=== PATIENT | female | born 1985 | race Caucasian/White ===

== ENCOUNTER 2017-03-27 00:19 | Inpatient (IN) | payer SELFPAY ==
[2017-03-27] VITALS (10 sets, daily range): BP systolic 98–118; BP diastolic 63–83; PULSE 67–109; RESP 12–20; TEMP 97.7–98.4; O2SAT 94–100
[~2017-03-27] VITALS: Ht 160 cm; Wt 66.2 kg
[~2017-03-27 00:19] MED LIST: SULF-154 PO
[2017-03-27] MEDS ORDERED: KETOROLAC TROMETHAMINE 30 MG/ML (IVP) VIAL IVP ONE (01:45)
[2017-03-27] MEDS ORDERED: VANCOMYCIN INJ 1,000 MG in SODIUM CHLOR 0.9% 250 ML INJ 250 ML IV ONE (01:45)
[2017-03-27 02:19] LABS: AUTOMATED NEUTROPHIL # 10.1 TH/MM3 (1.8-7.7); BASOPHIL % 0.2 % (0.0-2.0); EOSINOPHIL # 0.1 TH/MM3 (0-0.4); HEMATOCRIT 40.4 % (35.0-46.0); LYMPH % 15.2 % (9.0-44.0); LYMPHOCYTE # 1.9 TH/MM3 (1.0-4.8); MEAN CELL VOLUME 86.3 FL (80.0-100.0); MEAN CORPUSCULAR HEMOGLOBIN 29.4 PG (27.0-34.0); MONO % 1.3 % (0.0-8.0); NEUT % 82.3 % (16.0-70.0); PLATELET COUNT 409 TH/MM3 (150-450); RED BLOOD COUNT 4.68 MIL/MM3 (4.00-5.30); RED CELL DISTRIBUTION WIDTH 14.4 % (11.6-17.2); WHITE BLOOD COUNT 12.3 TH/MM3 (4.0-11.0)
[2017-03-27 02:30] LABS: POTASSIUM 3.6 MEQ/L (3.5-5.1)
[2017-03-27 02:44] LABS: HEMO FLAGS AUTO DIFF
[2017-03-27 02:48] LABS: PLATELET ESTIMATE SMEAR HIGH (NORMAL); PLATELET MORPHOLOGY NORMAL (NORMAL); SCAN/DIFF AUTO DIFF CONFIRMED
[2017-03-27] MEDS ORDERED: IOHEXOL 350 MG/ML 10 ML VIAL (for RAD DIAG) IVCONTRAST ONE (03:22)
--- NOTE | 2017-03-27 03:37 | RADRPT ---
EXAM DATE/TIME: 03/27/2017 03:05 [place] COMPARISON: No previous studies available for comparison. INDICATIONS : Right hand swelling and pain. Evaluate for abscess. IV CONTRAST: 75 cc Omnipaque 350 (iohexol) IV RADIATION DOSE: 13.07 CTDIvol (mGy) MEDICAL HISTORY : None SURGICAL HISTORY : None. ENCOUNTER: Initial ACUITY: 1 day PAIN SCALE: 8/10 LOCATION: Right hand TECHNIQUE: Volumetric scanning of the hand was performed. Using automated exposure control and adjustment of th e mA and/or kV according to patient size, radiation dose was kept as low as reasonably achievable to obtain optimal diagnostic quality images. DICOM format image data is available electronically for re view and comparison. FINDINGS: Irregular rim-enhancing fluid collection seen in the dorsal thenar musculature compatible with an abs cess measuring 15 x 24 x 19 mm in size. Superficial margin of the mass comes as close to 6 mm beneath the skin, for example series 4 image 50. The deep margin of the mass is close to the mid shaft of th e second metacarpal. Don't see tendon sheath involvement. No perceptible bone destruction. Otherwise, and generalized subcutaneous edema without other organized fluid collections. CONCLUSION: Abscess within the dorsal thenar soft tissues as described above. The margin of the abscess is close to the mid shaft of the second metacarpal but no evidence by CT of osteomyelitis. Frank Mejia MD on March 27, 2017 at 3:32 Board Certified Radiologist. This report was verified electronically.
--- NOTE | 2017-03-27 03:48 | PD ---
HPI Chief Complaint: Laceration/Skin Injury Time Seen by Provider: 01:39 Travel History International Travel<30 days: No Contact w/Intl Traveler<30days: No Traveled to known affect area: No History of Present Illness HPI 31-year-old female presents to the emergency department for complaint of 4 days of worsening swelling of the right hand primarily affecting the first webspace. Patient denies any injury or puncture wound. Patient states she thought perhaps she had sustained an insect bite but does not recall any specific area of redness or puncture wound. 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 Patient rates pain as severe 8/10 in intensity. Patient has decreased range of motion of digit secondary to soft tissue swelling. Patient notes swelling of the dorsum of the hand and minimal swelling to her fingers. Patient's had no ascending erythema or axillary lymphadenopathy. Patient denies any fever or chills. Patient is not diabetic; told prediabetic. No IVDA. [facility] Past Medical History Narrative Medical Migraines Anemia prediabetes kidney stones lithotripsy occasional alcohol use tobacco use and marijuana use; nursing notes reviewed Anemia: Yes Cardiovascular Problems: No Diabetes: Yes (PT STATES PRE-DIABETIC. ) Patient Takes Glucophage: No Diminished Hearing: No Gastrointestinal Disorders: Yes GERD: Yes Genitourinary: Yes Headaches: Yes Implanted Vascular Access Dvce: No Kidney Stones: Yes Musculoskeletal: Yes Neurologic: Yes Respiratory: No Immunizations Current: Yes Migraines: Yes Influenza Vaccination: No ?: Not LMP: now Past Surgical History Genitourinary Surgery: Yes (LITHOTRIPSY 2015) Other Surgery: No Social History Alcohol Use: Yes (2-3 DAYS/WK) Tobacco Use: Yes (1/2 PPD) Substance Use: Yes (Marijuana) Allergies-Medications (Allergen,Severity, Reaction): Coded Allergies: penicillin G (Verified Allergy, Intermediate, 03/27/17) Reported Meds & Prescriptions Reported Meds & Active Scripts Active Review of Systems Except as stated in HPI: all other systems reviewed are Neg General / Constitutional: No: Fever, Chills HENT: No: Congestion Cardiovascular: No: Chest Pain or Discomfort Respiratory: No: Shortness of Breath Gastrointestinal: No: Abdominal Pain Genitourinary: No: Dysuria Musculoskeletal: Positive: Edema (right hand), Pain Skin: Positive Lumps ( right hand) Neurologic: No: Weakness ( right hand) Psychiatric: No: Anxiety Hematologic/Lymphatic: No: Lymph Node Enlargement Physical Exam Narrative GENERAL: Well-developed well-nourished female in obvious discomfort no respiratory distress. SKIN: Warm and dry. HEAD: Normocephalic. EYES: No scleral icterus. No injection or drainage. NECK: Supple, trachea midline. No JVD or lymphadenopathy. CARDIOVASCULAR: Regular rate and rhythm without murmurs, gallops, or rubs. RESPIRATORY: Breath sounds equal bilaterally. No accessory muscle use. GASTROINTESTINAL: Abdomen soft, non-tender, nondistended. MUSCULOSKELETAL: No cyanosis, or edema. Attention right hand with marked soft tissue swelling of the dorsum of the right hand each digit shows limited range of motion secondary to soft tissue swelling to the dorsum of the right hand without increased pain on passive extension of the digits. Patient does hold hands and actual flexion cascade and has decreased thumb apposition secondary to soft tissue swelling. Capillary refill is brisk and less than 2 seconds per digit. Sensory exam is intact. No obvious wound identified on the dorsum of the hand or palmar surface. Patient has scars to the dorsum of the right hand. Radial pulses 2+ to palpation no ascending erythema and no axillary lymphadenopathy. BACK: Nontender without obvious deformity. No CVA tenderness. Data Data Last Documented VS Vital Signs Date Time Temp Pulse Resp B/P (MAP) Pulse Ox O2 Delivery O2 Flow Rate FiO2 03/27/17 04:17 14 03/27/17 02:56 84 108/72 (84) 97 Room Air 03/27/17 00:24 98.4 Orders Orders Basic Metabolic Panel (Bmp) (03/27/17 01:39) Complete Blood Count With Diff (03/27/17 01:39) Blood Culture (03/27/17 01:39) Iv Access Insert/Monitor (03/27/17 01:39) Ketorolac Inj (Toradol Inj) (03/27/17 01:45) Ct Hand W Iv Contrast (03/27/17 ) Ed Urine Pregnancytest Poc (03/27/17 01:39) Vancomycin Inj (Vancomycin Inj) (03/27/17 01:45) Iohexol 350 Inj (Omnipaque 350 Inj) (03/27/17 03:22) Lidocaine Pf 1% Inj (Xylocaine-Mpf 1% In (03/27/17 04:00) Wound Culture And Gram Stain (03/27/17 03:48) Morphine Inj (Morphine Inj) (03/27/17 04:15) Ondansetron Inj (Zofran Inj) (03/27/17 04:15) ^ Saline Lock (03/27/17 05:01) Resp Oxygen Pa C Titrat 1-4 L (03/27/17 ) Notify Dr: Other (03/27/17 05:01) Sodium Chloride 0.9% Flush (Ns Flush) (03/27/17 09:00) Sodium Chloride 0.9% Flush (Ns Flush) (03/27/17 05:15) Labs Laboratory Tests Test 03/27/17 02:06 White Blood Count 12.3 TH/MM3 Red Blood Count 4.68 MIL/MM3 Hemoglobin 13.8 GM/DL Hematocrit 40.4 % Mean Corpuscular Volume 86.3 FL Mean Corpuscular Hemoglobin 29.4 PG Mean Corpuscular Hemoglobin Concent 34.0 % Red Cell Distribution Width 14.4 % Platelet Count 409 TH/MM3 Mean Platelet Volume 7.1 FL Neutrophils (%) (Auto) 82.3 % Lymphocytes (%) (Auto) 15.2 % Monocytes (%) (Auto) 1.3 % Eosinophils (%) (Auto) 1.0 % Basophils (%) (Auto) 0.2 % Neutrophils # (Auto) 10.1 TH/MM3 Lymphocytes # (Auto) 1.9 TH/MM3 Monocytes # (Auto) 0.2 TH/MM3 Eosinophils # (Auto) 0.1 TH/MM3 Basophils # (Auto) 0.0 TH/MM3 CBC Comment AUTO DIFF Differential Comment AUTO DIFF CONFIRMED Platelet Estimate HIGH Platelet Morphology Comment NORMAL Red Cell Morphology Comment NORMAL Blood Urea Nitrogen 9 MG/DL Creatinine 0.66 MG/DL Random Glucose 98 MG/DL Calcium Level 8.7 MG/DL Sodium Level 136 MEQ/L Potassium Level 3.6 MEQ/L Chloride Level 103 MEQ/L Carbon Dioxide Level 25.0 MEQ/L Anion Gap 8 MEQ/L Estimat Glomerular Filtration Rate 104 ML/MIN [facility] Medical Decision Making Medical Screen Exam Complete: Yes Emergency Medical Condition: Yes Medical Record Reviewed: Yes Interpretation(s) CT hand: FINDINGS: Irregular rim-enhancing fluid collection seen in the dorsal thenar musculature compatible with an abscess measuring 15 x 24 x 19 mm in size. Superficial margin of the mass comes as close to 6 mm beneath the skin, for example series 4 image 50. The deep margin of the mass is close to the mid shaft of the second metacarpal. Don't see tendon sheath involvement. No perceptible bone destruction. Otherwise, and generalized subcutaneous edema without other organized fluid collections. CONCLUSION: Abscess within the dorsal thenar soft tissues as described above. The margin of the abscess is close to the mid shaft of the second metacarpal but no evidence by CT of osteomyelitis. Frank Mejia MD on March 27, 2017 at 3:32 Board Certified Radiologist. This report was verified electronically. Differential Diagnosis Cellulitis, abscess, infectious tenosynovitis, fracture, osteomyelitis Narrative Course IV access obtained specimens collected and sent for resulting; patient administered Toradol for pain imaging studies ordered and administered IV antibiotics Patient refused plain x-ray and states she does not have a fracture and does not have any retained foreign body CT with IV contrast shows evidence of a soft tissue abscess CBC with automated differential with mild leukocytosis and left shift chemistries are normal range Discussed incision and drainage procedure with patient and after verbal consent for seated with attempted to I&D the first webspace abscess. Patient's case discussed with on-call medicine for admission for ongoing IV antibiotics is aware that able to aspirate purulent material from CT he identified abscess but on review of abscess site unable to aspirate any further fluid therefore concern for small size of abscess and unable to I&D. Plan will be to admit to medicine service for ongoing IV antibiotic therapy and consult to hand service. Patient is aware that she may require surgical management and irrigation of the abscess site by hand surgeon. Procedures Procedure Narrative After informed verbal consent the dorsum of the right hand was sterilely prepped and draped and cleansed with Betadine; 2 cc of 1% lidocaine plain was injected for local anesthesia with good effect; using ultrasound to locate abscess fluid collection a #25-gauge needle was inserted to see if fluid could be withdrawn and 1 cc of purulent material was aspirated and sent for C & S; prior to attempting incision and drainage the site was again evaluated by inserting a 25-gauge needle into what appeared to be a residual fluid collection and no fluid was able to be successfully aspirated. In view of volume of initial aspirate and collapse of volume of abscess site by ultrasound incision and drainage with scalpel was deferred. Patient was reassessed and remained with intact sensation brisk capillary refill less than 2 seconds per digit; continues to have pain to palpation. Physician Communication Physician Communication discussed with Dr Anderson for admission Diagnosis Primary Impression: Abscess of hand, right Admitting Information Admitting Physician Requests: Admit Eliaz Wilks MD Mar 27, 2017 03:48
[2017-03-27] MEDS ORDERED: LIDOCAINE HCL 1% PF 30 ML VIAL INFIL ONE (04:00)
[2017-03-27] MEDS ORDERED: ONDANSETRON HCL 4 MG/2 ML VIAL IV PUSH ONE (04:15)
[2017-03-27] MEDS ORDERED: MORPHINE SULFATE 4 MG/ML INJ IV PUSH ONE (04:15)
[2017-03-27] MEDS ORDERED: SODIUM CHLORIDE 0.9% FLUSH 10 ML FLUSH IVF PRN (05:15)
[2017-03-27] MEDS ORDERED: metroNIDAZOLE 500 MG INJ 100 ML IV ONE (05:15)
[2017-03-27] MEDS ORDERED: AZTREONAM INJ 2,000 MG in SODIUM CHLORIDE 0.9% INJ 100 ML IV ONE (05:15)
[2017-03-27] MEDS ORDERED: Vancomycin Consult Pharmacy 1 EA OTHER SCH (05:45)
[2017-03-27] MEDS ORDERED: SODIUM CHLORIDE 0.9% FLUSH 10 ML FLUSH IV FLUSH PRN (05:45)
[2017-03-27] MEDS ORDERED: NALOXONE HCL 0.4 MG/ML AMP IV PUSH PRN (05:45)
[2017-03-27] MEDS: LEVOFLOXACIN 750 MG PREMIX INJ 150 ML IV SCH (07:54)
[2017-03-27] MEDS: SODIUM CHLOR 0.9% 1000 ML INJ 1,000 ML IV SCH ×2 (07:55→21:35)
[2017-03-27] MEDS ORDERED: SODIUM CHLORIDE 0.9% FLUSH 10 ML FLUSH IV FLUSH SCH (09:00)
[2017-03-27] MEDS: SODIUM CHLORIDE 0.9% FLUSH 10 ML FLUSH IV FLUSH SCH ×2 (09:00→21:35)
[2017-03-27] MEDS ORDERED: oxyCODONE/ACETAMINOPHEN 5 MG/325 MG TAB PO PRN (09:00)
--- NOTE | 2017-03-27 09:00 | HHI.HP ---
[facility] No Primary Care Physician Admission Diagnosis R hand abscess/cellulitis Diagnoses: Travel History International Travel<30 Days: No Contact w/Intl Traveler <30 Da: No Traveled to Known Affected Are: No History of Present Illness Mrs. Leon is a 31-year-old female. Into the ER yesterday with swelling and redness of her right hand. Imaging revealed an abscess. I&D was performed. Further I&D may be needed. She says the symptoms started about 5 days prior to her coming in and in that time there has been progression of redness, swelling, and pain. The site of origin was by the fold of her thumb. She denies any fever or chills or night sweats. Primary complaint is pain. No nausea vomiting or diarrhea. Review of Systems Constitutional: DENIES: Diaphoretic episodes, Fatigue, Fever, Chills, Night Sweats Eyes: DENIES: Blurred vision, Diplopia, Eye inflammation Ears, nose, mouth, throat: DENIES: Tinnitus, Hearing loss, Vertigo Respiratory: DENIES: Apneas, Cough, Snoring Cardiovascular: DENIES: Chest pain, Palpitations, Syncope Gastrointestinal: DENIES: Abdominal pain, Black stools, Bloody stools Musculoskeletal: COMPLAINS OF: Joint pain, Joint Swelling, DENIES: Muscle aches , Stiffness Integumentary: COMPLAINS OF: Abnormal pigmentation, DENIES: Pruritus, Rash Hematologic/lymphatic: DENIES: Bruising, Lymphadenopathy Immunologic/allergic: DENIES: Eczema, Urticaria Neurologic: DENIES: Abnormal gait, Headache, Paresthesias Psychiatric: DENIES: Anxiety, Confusion Past Family Social History Past Medical History Iron deficiency anemia Pre-diabetes Nephrolithiasis 2015 Past Surgical History None Reported Medications Reported Meds & Active Scripts Active Allergies: Coded Allergies: penicillin G (Verified Allergy, Intermediate, 03/27/17) Active Ordered Medications Administered Medications Medications (Trade) Dose Ordered Sig/[place] Route PRN Reason Start Time Stop Time Status Last Admin Dose Admin Sodium Chloride 1,000 ml @ 100 mls/hr Q10H IV 03/27/17 05:40 03/27/17 07:55 Levofloxacin/ Dextrose 150 ml @ 100 mls/hr Q24H IV 03/27/17 07:00 03/27/17 07:54 Vancomycin HCl 1250 mg/Sodium Chloride 262.5 ml @ 250 mls/hr Q12H IV 03/27/17 11:00 03/27/17 11:40 Oxycodone/ Acetaminophen (Percocet 10-325 Mg) 1 tab Q4H PRN PO Pain 7 to 10 03/27/17 09:00 03/27/17 09:02 Family History Mother: kidney stones Social History Occasional alcohol use Less than 1 pack per day of cigarettes Occasional marijuana use Past history of IV drug abuse Past history of cocaine, methamphetamines Physical Exam Vital Signs Vital Signs Date Time Temp Pulse Resp B/P (MAP) Pulse Ox O2 Delivery O2 Flow Rate FiO2 03/27/17 06:07 81 16 103/63 (76) 99 03/27/17 05:16 74 16 112/68 (83) 98 Room Air 03/27/17 05:16 98 21 03/27/17 04:17 14 03/27/17 03:35 16 03/27/17 02:56 84 16 108/72 (84) 97 Room Air 03/27/17 02:21 14 03/27/17 02:18 109 14 98/67 (77) 95 03/27/17 00:24 98.4 109 12 98/67 (77) 95 Physical Exam GENERAL: NAD, A&Ox3 HEAD: Normocephalic. NECK: Supple, trachea midline. No lymphadenopathy. EYES: No scleral icterus. No injection or drainage. CARDIOVASCULAR: Regular rate and rhythm without murmurs, gallops, or rubs. RESPIRATORY: Breath sounds equal bilaterally. No accessory muscle use. GASTROINTESTINAL: Abdomen soft, non-tender, nondistended. MUSCULOSKELETAL: No cyanosis, or edema. Swelling of right hand most prominent at the thumb fold, status post I&D. SKIN: Warm and dry. NEURO: No focal neurological deficitis. Laboratory Laboratory Tests Test 03/27/17 02:06 White Blood Count 12.3 Red Blood Count 4.68 Hemoglobin 13.8 Hematocrit 40.4 Mean Corpuscular Volume 86.3 Mean Corpuscular Hemoglobin 29.4 Mean Corpuscular Hemoglobin Concent 34.0 Red Cell Distribution Width 14.4 Platelet Count 409 Mean Platelet Volume 7.1 Neutrophils (%) (Auto) 82.3 Lymphocytes (%) (Auto) 15.2 Monocytes (%) (Auto) 1.3 Eosinophils (%) (Auto) 1.0 Basophils (%) (Auto) 0.2 Neutrophils # (Auto) 10.1 Lymphocytes # (Auto) 1.9 Monocytes # (Auto) 0.2 Eosinophils # (Auto) 0.1 Basophils # (Auto) 0.0 CBC Comment AUTO DIFF Differential Comment AUTO DIFF CONFIRMED Platelet Estimate HIGH Platelet Morphology Comment NORMAL Red Cell Morphology Comment NORMAL Blood Urea Nitrogen 9 Creatinine 0.66 Random Glucose 98 Calcium Level 8.7 Sodium Level 136 Potassium Level 3.6 Chloride Level 103 Carbon Dioxide Level 25.0 Anion Gap 8 Estimat Glomerular Filtration Rate 104 Date/Time Source Procedure Growth Status 03/27/17 02:09 Blood Peripheral Aerobic Blood Culture Pending Received 03/27/17 02:09 Blood Peripheral Anaerobic Blood Culture Pending Received 03/27/17 04:28 Wound Hand Gram Stain Pending Received 03/27/17 04:28 Wound Hand Wound Culture Pending Received Result Diagram: 03/27/17 0206 03/27/17 0206 Caprini VTE Risk Assessment Caprini VTE Risk Assessment: No/Low Risk (score <= 1) Caprini Risk Assessment Model Point Value = 1 Point Value = 2 Point Value = 3 Point Value = 5 Age 41-60 Minor surgery BMI > 25 kg/m2 Swollen legs Varicose veins or History of unexplained or recurrent spontaneous Oral contraceptives or hormone replacement Sepsis (< 1 month) Serious lung disease, including pneumonia (< 1 month) Abnormal pulmonary function Acute myocardial infarction Congestive heart failure (< 1 month) History of inflammatory bowel disease Medical patient at bed rest Age 61-74 Arthroscopic surgery Major open surgery (> 45 min) Laparoscopic surgery (> 45 min) Malignancy Confined to bed (> 72 hours) Immobilizing plaster cast Central venous access Age >= 75 History of VTE Family history of VTE Factor V Leiden Prothrombin [id number] Lupus anticoagulant Anticardiolipin antibodies Elevated serum homocysteine Heparin-induced thrombocytopenia Other congenital or acquired thrombophilia Stroke (< 1 month) Elective arthroplasty Hip, pelvis, or leg fracture Acute spinal cord injury (< 1 month) Prophylaxis Regimen Total Risk Factor Score Risk Level Prophylaxis Regimen 0-1 Low Early ambulation 2 Moderate Order ONE of the following: *Sequential Compression Device (SCD) *Heparin 5000 units SQ BID 3-4 Higher Order ONE of the following medications: *Heparin 5000 units SQ TID *Enoxaparin/Lovenox 40 mg SQ daily (WT < 150 kg, CrCl > 30 mL/min) *Enoxaparin/Lovenox 30 mg SQ daily (WT < 150 kg, CrCl > 10-29 mL/min) *Enoxaparin/Lovenox 30 mg SQ BID (WT < 150 kg, CrCl > 30 mL/min) AND/OR *Sequential Compression Device (SCD) 5 or more Highest Order ONE of the following medications: *Heparin 5000 units SQ TID (Preferred with Epidurals) *Enoxaparin/Lovenox 40 mg SQ daily (WT < 150 kg, CrCl > 30 mL/min) *Enoxaparin/Lovenox 30 mg SQ daily (WT < 150 kg, CrCl > 10-29 mL/min) *Enoxaparin/Lovenox 30 mg SQ BID (WT < 150 kg, CrCl > 30 mL/min) AND *Sequential Compression Device (SCD) Assessment and Plan Problem List: (1) Abscess of hand, right ICD Code: L02.511 - Cutaneous abscess of right hand Status: Acute Assessment and Plan Assessment and plan 31-year-old female admitted secondary to right hand abscess Right hand abscess Right hand cellulitis I&D performed in the ER Further abscess suspected Hand surgeon has been consulted Continue Levaquin Continue probiotics Continue vancomycin Follow wound cultures Continue pain treatments Nicotine use Patient counseled to quit Patient declines NicoDerm DVT prophylaxis Patient is ambulatory SCDs Physician Certification 2 Midnight Certification Type: Admission for Inpatient Services Order for Inpatient Services The services are ordered in accordance with Medicare regulations or non- Medicare payer requirements, as applicable. In the case of services not specified as inpatient-only, they are appropriately provided as inpatient services in accordance with the 2-midnight benchmark. Estimated LOS (days): 3 days is the estimated time the patient will need to remain in the hospital, assuming treatment plan goals are met and no additional complications. Post-Hospital Plan: Manish Blackwood MD Mar 27, 2017 09:00
[2017-03-27] MEDS: oxyCODONE/ACETAMINOPHEN 10 MG/325 MG TAB PO PRN (09:02)
[2017-03-27] MEDS: VANCOMYCIN INJ 1,250 MG in SODIUM CHLOR 0.9% 250 ML INJ 250 ML IV SCH ×2 (11:40→21:34)
[2017-03-27] MEDS: HYDROmorphone HCL PF 1 MG/ML VIAL IV PUSH PRN ×3 (12:48→21:34)
--- NOTE | 2017-03-27 17:45 | MB ---
cc: BRAIN KNIGHT M.D., BRENDA H. M.D. DATE OF CONSULTATION: 03/27/2017 REFERRING PHYSICIAN: Eliza Wilks MD. HISTORY OF PRESENT ILLNESS The patient is a 31-year-old female who presented to the emergency room here today with redness and swelling of right hand. A CT scan was performed which revealed an abscess. The abscess was partially drained with a needle. This material was cultured and gram stain the gram stain shows rare WBCs and have a mixed osiris with no predominant morphology lesion. The patient was admitted placed on intravenous antibiotics and consultation is requested noted to adequately treat the patient's abscess. PAST MEDICAL HISTORY: A Review of systems was positive for joint pain and joint swelling and abnormal pigmentation. FAMILY HISTORY Positive for iron deficiency anemia Pre diabetes Nephrolithiasis 2014. PAST SURGICAL HISTORY Denied. MEDICATIONS: Medications listed on the chart. ALLERGIES PENICILLIN FAMILY HISTORY: Positive, kidney stones. SOCIAL HISTORY The patient consumes alcohol occasionally, less then one pack cigarettes per day. Past history of IV drug abuse, occasional marijuana use. PHYSICAL EXAMINATION: IN GENERAL: On examination the patient is sitting comfortably in bed. VITAL SIGNS: Temperature 98.4, pulse 75, respirations 16, blood pressure 118/82 and pulse oximetry of 94. HEAD, EYES, EARS, NOSE, AND THROAT: Her extraocular muscles are intact. Time-out is clear. NECK: Neck is supple without masses. LUNGS: Clear. HEART: Heart is regular rate rhythm. EXTREMITIES: Examination of the upper extremities reveals swelling of the right hand on the dorsal surface. There is a puncture wound which is visible. There is tenderness. There is fluctuance. LABORATORY DATA White counts 12.3 on admission, 82.3% neutrophils. RADIOLOGIC: The CT scan was apparently positive for abscess. IMPRESSION The patient has an abscess which has been untreated. PLAN The patient will be taken to the operating room for incision and drainage of the abscess. The patient is made aware that there will be an incision approximately 2 cm there will be packing placed in addition, the packing can be removed in 24 hours after the surgery. Wound care will be ordered for the patient if she decides to leave within hours after the surgery. She understands, accepts risks and complications of surgery. The patient is scheduled for the operating room tomorrow 11:30 a.m. MD VANCE Iraheta/otilia /5:08 PM /5:36 PM
[2017-03-28] VITALS (7 sets, daily range): BP systolic 111–116; BP diastolic 73–81; PULSE 73–89; RESP 16–20; TEMP 97.5–98.1; O2SAT 98–100
[2017-03-28] MEDS: SODIUM CHLOR 0.9% 1000 ML INJ 1,000 ML IV SCH ×2 (01:38→13:14)
[2017-03-28] MEDS: HYDROmorphone HCL PF 1 MG/ML VIAL IV PUSH PRN ×4 (01:46→21:50)
[2017-03-28] MEDS: LEVOFLOXACIN 750 MG PREMIX INJ 150 ML IV SCH (05:49)
[2017-03-28] MEDS ORDERED: Vancomycin Consult Pharmacy 1 EA OTHER SCH (08:45)
[2017-03-28] MEDS: oxyCODONE/ACETAMINOPHEN 10 MG/325 MG TAB PO PRN ×3 (08:49→20:12)
[2017-03-28] MEDS: SODIUM CHLORIDE 0.9% FLUSH 10 ML FLUSH IV FLUSH SCH ×2 (08:50→20:19)
[2017-03-28] MEDS ORDERED: CHLORHEXIDINE GLUCONATE 2 % 1 PACK (2 CLOTHS) TOPICAL PRN (10:00)
[2017-03-28] MEDS ORDERED: INSULIN HUMAN REGULAR 1,000 UNITS/10 ML VIAL SQ PRN (10:00)
[2017-03-28] MEDS ORDERED: LACTATED RINGER'S 1000 ML IV PRN (10:00)
[2017-03-28] MEDS ORDERED: POVIDONE IODINE 5% (ANTISEPSIS KIT) 4 APPLICATIONS EACH NARE PRN (10:00)
[2017-03-28] MEDS ORDERED: SODIUM CHLORID 0.9% 500 ML IV PRN (10:00)
[2017-03-28] MEDS ORDERED: METOPROLOL TARTRATE 25 MG TAB PO PRN (10:00)
[2017-03-28] MEDS ORDERED: MIDAZOLAM HCL 2 MG/2 ML VIAL ONE (10:06)
[2017-03-28] MEDS ORDERED: FAMOTIDINE 20 MG/2 ML VIAL ONE (10:07)
[2017-03-28] MEDS ORDERED: BUPIVACAINE HCL PF 0.5% 30 ML VIAL ONE (10:18)
[2017-03-28] MEDS ORDERED: PHARMACY ORDERED LAB ONE (10:45)
[2017-03-28 10:48] LABS: BASOPHIL # 0.1 TH/MM3 (0-0.2); BASOPHIL % 1.3 % (0.0-2.0); EOSINOPHIL # 0.1 TH/MM3 (0-0.4); EOSINOPHIL % 0.9 % (0.0-4.0); HEMATOCRIT 37.7 % (35.0-46.0); HEMO FLAGS DIFF FINAL; LYMPH % 13.1 % (9.0-44.0); MEAN CELL VOLUME 89.1 FL (80.0-100.0); MEAN CORPUSCULAR HEMOGLOBIN 28.9 PG (27.0-34.0); MEAN CORPUSCULAR HGB CONC 32.5 % (32.0-36.0); MONO % 5.8 % (0.0-8.0); NEUT % 78.9 % (16.0-70.0); PLATELET COUNT 322 TH/MM3 (150-450); RED BLOOD COUNT 4.23 MIL/MM3 (4.00-5.30); RED CELL DISTRIBUTION WIDTH 14.4 % (11.6-17.2); WHITE BLOOD COUNT 7.6 TH/MM3 (4.0-11.0)
[2017-03-28 10:55] LABS: CHLORIDE 102 MEQ/L (98-107); POTASSIUM 4.1 MEQ/L (3.5-5.1); SODIUM (NA) 137 MEQ/L (136-145)
[2017-03-28] MEDS ORDERED: KETAMINE HCL 500 MG/10 ML VIAL ONE (10:56)
[2017-03-28 10:59] LABS: ANION GAP 8 MEQ/L (5-15); BICARBONATE 27.5 MEQ/L (21.0-32.0); BLOOD UREA NITROGEN 7 MG/DL (7-18)
[2017-03-28 11:02] LABS: ALT (GPT) 15 U/L (10-53); AST (GOT) 11 U/L (15-37); GLOMERULAR FILTRATION RATE 116 ML/MIN (>89)
[2017-03-28 11:03] LABS: TOTAL BILIRUBIN ADULT 0.7 MG/DL (0.2-1.0)
[2017-03-28 11:05] LABS: ALKALINE PHOSPHATASE 84 U/L (45-117)
[2017-03-28] MEDS ORDERED: ONDANSETRON HCL 4 MG/2 ML VIAL IV PUSH ONE (12:00)
[2017-03-28] MEDS ORDERED: PROPOFOL 200 MG/20 ML AMP IV ONE (12:00)
[2017-03-28] MEDS ORDERED: PHENYLEPH/NS 1000 MCG/10 ML SYR IV ONE (12:00)
[2017-03-28] MEDS: VANCOMYCIN INJ 1,250 MG in SODIUM CHLOR 0.9% 250 ML INJ 250 ML IV SCH (12:00)
[2017-03-28] MEDS ORDERED: LACTATED RINGER'S 1000 ML INJ 1,000 ML IV ONE (12:00)
--- NOTE | 2017-03-28 12:02 | HHI.PR ---
Immediate Post Op Note Procedure Date: Mar 28, 2017 Pre Op Diagnosis: (1) Abscess of hand, right Post Op Diagnosis: (1) Abscess of hand, right Surgeon: Lyla Hall [employer] Professional(s): None Procedure: Incision and drainage of abscess of the right hand. Anesthesia: General Drains: Other (1/4 inch iodoform packing) Tourniquet time (min at mmHg) NA Patient to: PACU Patient Condition: Good Date/Time of Procedure: SEE SURGICAL CARE RECORD Lyla Hall MD Mar 28, 2017 12:02
--- NOTE | 2017-03-28 12:32 | MP ---
cc: BRAIN KNIGHT M.D. DATE OF SURGERY 03/28/2017 PREOPERATIVE DIAGNOSIS Abscess right hand. POSTOPERATIVE DIAGNOSIS Abscess right hand. PROCEDURE Incision and drainage of abscess right hand. ANESTHESIA General SURGEON Brain Knight MD INDICATIONS This is a 31-year-old female with abscess of the right hand. FINDINGS There is a deep abscess. There was approximately 3-4 mL of pus in the abscess. At completion of the procedure, the abscess had been completely drained, loculations broke up and the wound packed with iodoform packing. OPERATIVE TIME Approximately 30 minutes PROCEDURE IN DETAIL The patient was seen preoperatively where the site and side were identified and marked. The patient was then taken to the operating room, placed in supine position. Her identity was checked against the arm band and the consent form site and side confirmed, time-out called prior to beginning the procedure. The right upper extremity was prepped with Hibiclens and draped in the usual sterile fashion. The area be incised was outlined with a marking pen on the dorsal aspect of the hand. It measured approximate 1.5 to 2 cm in length directly over the abscess. Bupivacaine 0.5% plain was used make a dorsal block of the dorsal radial and ulnar nerves in the distal forearm. A #15 blade was used make the incision down through skin down to the subcutaneous tissue. A clamp was used to penetrate the abscess cavity which was entered, a large amount of pus did exude from this area, approximately 3-4 mL. The wound was held open using a clamp and a suction cannula was used to bring up the loculations, remove the pus, as well as to explore it. The cavity was then copiously irrigated with saline until the effluent fluid was clear. It was then packed with iodoform packing. Povidone-iodine ointment was applied after cleansing the hand of Hibiclens and blood. On top of this was placed Adaptic, Telfa, 4x4s and hand wrap. The patient was then taken from the operating room to recovery room in satisfactory condition having tolerated the procedure well. Postoperative instructions include keeping arm elevated, keeping the area clean and dry. The patient will be started back on a regular diet. She will be cleared for discharge when medically cleared to be followed up in my clinic next week. Wound care instructions were written. This include removing the packing in the morning and begin soaking in a dilute solution of Betadine and water and apply povidone-iodine ointment. MD VANCE Iraheta/ANAI /12:03 PM /12:16 PM [facility]Kim
--- NOTE | 2017-03-28 15:43 | HHI.PR ---
Subjective Remarks Patient seen and evaluated for right hand infection. Status post I&D. Doing well. Gram-negative bacteria growing in cultures Patient complaining of moderate pain in the right hand postoperatively although improved from her admission complaint Objective Vitals Vital Signs Date Time Temp Pulse Resp B/P (MAP) Pulse Ox O2 Delivery O2 Flow Rate FiO2 03/28/17 12:30 97.9 61 16 110/75 (87) 100 Room Air 03/28/17 12:15 97.9 64 16 123/79 (94) 100 Nasal Cannula 2 03/28/17 12:00 97.9 62 16 121/72 (88) 100 Nasal Cannula 2 03/28/17 11:55 97.9 62 16 111/77 (88) 99 Nasal Cannula 2 03/28/17 11:55 87 03/28/17 09:40 98.2 75 18 115/76 (89) 95 03/28/17 08:00 97.5 74 16 111/73 (86) 100 03/28/17 04:00 20 03/28/17 00:00 97.8 89 20 112/76 (88) 100 03/27/17 21:10 99 21 03/27/17 20:00 98.0 72 20 109/83 (92) 100 03/27/17 17:52 18 03/27/17 16:00 98.4 75 16 118/82 (94) 94 I/O 03/27/17 03/27/17 03/27/17 03/28/17 03/28/17 03/28/17 07:00 15:00 23:00 07:00 15:00 23:00 Intake Total 350 ml 512.5 ml 1320 ml 1272.5 ml 2150 ml Output Total 300 ml 250 ml 20 ml Balance 350 ml 512.5 ml 1020 ml 1022.5 ml 2130 ml Intake Oral 520 ml 300 ml IV Total 350 ml 512.5 ml 800 ml 972.5 ml 1350 ml Other 800 ml Output Urine Total 300 ml 250 ml Estimated Blood Loss 20 ml # Voids 2 1 # Bowel Movements 0 0 Result Diagram: 03/28/17 1040 03/28/17 1040 Objective Remarks GENERAL: This is a well-nourished, well-developed patient, in no apparent distress. CARDIOVASCULAR: Regular rate and rhythm without murmurs, gallops, or rubs. RESPIRATORY: Clear to auscultation. Breath sounds equal bilaterally. No wheezes , rales, or rhonchi. GASTROINTESTINAL: Abdomen soft, non-tender, nondistended. Normal active bowel sounds MUSCULOSKELETAL: Right hand dressed post I&D, other 3 Extremities without clubbing, cyanosis, or edema. NEURO: Alert & Oriented x4 to person, place, time, situation. Moves all ext x4 A/P Problem List: (1) Abscess of hand, right ICD Code: L02.511 - Cutaneous abscess of right hand Status: Acute Plan: Follow cultures, as resulted we'll de-escalate antibiotic therapy DC IV fluids Taper IV pain meds Discharge Planning Likely discharge in a.m. pending cultures Anitra Kendrick MD Mar 28, 2017 15:43
[2017-03-28] MEDS: POVIDONE IODINE 10% SOLN 118 ML BOTTLE TOPICAL SCH (20:12)
[2017-03-28] MEDS: POVIDONE IODINE 10% OINT 30 GM TUBE TOPICAL SCH (20:13)
[2017-03-29] VITALS: BP 110/83; PULSE 65; RESP 20; TEMP 96.9; O2SAT 98
[2017-03-29] MEDS: VANCOMYCIN 1,500 MG/NS 500 ML IV SCH ×4 (00:01→12:45)
[2017-03-29] MEDS: oxyCODONE/ACETAMINOPHEN 10 MG/325 MG TAB PO PRN ×4 (00:01→12:28)
[2017-03-29 04:25] VITALS: RESP 20
[2017-03-29] MEDS: LEVOFLOXACIN 750 MG PREMIX INJ 150 ML IV SCH (05:55)
[2017-03-29 08:19] VITALS: BP 112/79; PULSE 63; RESP 16; TEMP 97.2; O2SAT 99
[2017-03-29] MEDS: SODIUM CHLORIDE 0.9% FLUSH 10 ML FLUSH IV FLUSH SCH (08:26)
[2017-03-29 12:42] VITALS: BP 110/67; PULSE 81; RESP 15; TEMP 97.2; O2SAT 95
[2017-03-29] MEDS: POVIDONE IODINE 10% SOLN 118 ML BOTTLE TOPICAL SCH (12:45)
[2017-03-29] MEDS: POVIDONE IODINE 10% OINT 30 GM TUBE TOPICAL SCH (12:45)
[2017-03-29 13:28] VITALS: RESP 18
[2017-03-29] MEDS ORDERED: LEVO750T3 PO (13:31)
[2017-03-29] MEDS ORDERED: OXYC1TAB36 PO (13:31)
--- NOTE | 2017-03-29 13:32 | HHI.DCPOC ---
Discharge Care Plan Diagnosis: (1) Abscess of hand, right Goals to Promote Your Health * To prevent worsening of your condition and complications * To maintain your health at the optimal level Directions to Meet Your Goals Take your medications as prescribed Follow your dietary instruction Follow activity as directed Keep your appointments as scheduled Take your immunizations and boosters as scheduled If your symptoms worsen call your PCP, if no PCP go to Urgent Care Center or Emergency Room Smoking is Dangerous to Your Health. Avoid second hand smoke Call the 24-hour hour crisis hotline for domestic abuse at Anitra Kendrick MD Mar 29, 2017 13:32
--- NOTE | 2017-03-29 13:35 | HHI.DS ---
Discharge Summary Admission Date Mar 27, 2017 at 05:05 Discharge Date: Mar 29, 2017 Admitting Diagnosis R hand abscess/cellulitis (1) Abscess of hand, right ICD Code: L02.511 - Cutaneous abscess of right hand Status: Acute Procedures I&D right hand Brief History - From Admission Mrs. Leon is a 31-year-old female. Into the ER yesterday with swelling and redness of her right hand. Imaging revealed an abscess. I&D was performed. Further I&D may be needed. She says the symptoms started about 5 days prior to her coming in and in that time there has been progression of redness, swelling, and pain. The site of origin was by the fold of her thumb. She denies any fever or chills or night sweats. Primary complaint is pain. No nausea vomiting or diarrhea. CBC/BMP: 03/28/17 1040 03/28/17 1040 Significant Findings Laboratory Tests Test 03/27/17 02:06 03/28/17 10:40 White Blood Count 12.3 TH/MM3 (4.0-11.0) Neutrophils (%) (Auto) 82.3 % (16.0-70.0) 78.9 % (16.0-70.0) Neutrophils # (Auto) 10.1 TH/MM3 (1.8-7.7) Platelet Estimate HIGH (NORMAL) Albumin 2.9 GM/DL (3.4-5.0) Aspartate Amino Transf (AST/SGOT) 11 U/L (15-37) PE at Discharge GENERAL: This is a well-nourished, well-developed patient, in no apparent distress. CARDIOVASCULAR: Regular rate and rhythm without murmurs, gallops, or rubs. RESPIRATORY: Clear to auscultation. Breath sounds equal bilaterally. No wheezes , rales, or rhonchi. GASTROINTESTINAL: Abdomen soft, non-tender, nondistended. Normal active bowel sounds MUSCULOSKELETAL: Right hand dressed post I&D, other 3 Extremities without clubbing, cyanosis, or edema. NEURO: Alert & Oriented x4 to person, place, time, situation. Moves all ext x4 Pt update on day of discharge Patient is doing well, dressing change done with nursing team. Patient taught how to dress her wounds. Discharge plans discussed with patient and nursing team Hospital Course Patient is a 31-year-old female with minimal past history did have injury to the right hand and developed abscess which was I&D. Cultures were positive for Klebsiella pneumonia and patient was continued with antibiotics. She did well and was discharged home Pt Condition on Discharge: Good Discharge Disposition: Discharge Home Discharge Time: <= 30 minutes Discharge Instructions Follow up Referrals: Hand Surgery - 2 Weeks New Medications: Levofloxacin (Levofloxacin) 750 Mg Tablet 750 MG PO DAILY for Infection, #8 TAB 0 Refills Oxycodone-Acetaminophen (Oxycodone-Acetaminophen) 10-325 mg Tab 1 TAB PO Q4H PRN for Pain 7 to 10, #20 TAB Anitra Kendrick MD Mar 29, 2017 13:35
[2017-03-30] MEDS ORDERED: PHARMACY ORDERED LAB ONE (10:45)
== END 2017-03-29 14:49 | disposition home or self-care (01) | DRG 603 ==
LOC: PHED 00:19 → PHEDA 05:05 → PH3A 06:24
PROVIDERS: ADMIT Hospitalist; ATTEND Hospitalist
PROC: 0H9FXZX Drainage of Right Hand Skin, External Approach, Diagnostic (ICD-10-PCS; 2017-03-27)
PROC: 0J9J0ZX Drainage of Right Hand Subcutaneous Tissue and Fascia, Open Approach, Diagnostic (ICD-10-PCS; principal; 2017-03-28 11:08)
DX: L02.511 Cutaneous abscess of right hand (principal); L03.113 Cellulitis of right upper limb; F17.210 Nicotine dependence, cigarettes, uncomplicated; K21.9 Gastro-esophageal reflux disease without esophagitis; B96.1 Klebsiella pneumoniae [K. pneumoniae] as the cause of diseases classified elsewhere; Z87.442 Personal history of urinary calculi
CPT/HCPCS: 73201; 80048; 80053; 80202; 84703; 85025; 87040; 87070; 87077; 87102; 87185; 87186; 87205; 87206; 96365; 96375; J1170; J1885; J1956; J2250; J2270; J2370; J2405; J3010; J3370; J7030; J7040; J7050; J7120; Q9967